=== PATIENT | female | born 1950 | race Caucasian/White ===

== ENCOUNTER → 2016-07-16 | Outpatient (CLI) | payer BC ==
[~2016-07-16] MED LIST: COUM2.5T11 PO; DYAZ37.5 PO; ESTR3TA PO; FOLI1TAB2 PO; MAXZTAB PO; MOBI15TA PO; PERC5TAB6 PO; PROT1TAB2 PO; TRAM37.53 PO; VALS1TAB46 PO; VENL75TA2 PO; [UNRECOGNIZED DRUG - CODE] PO
[2016-07-16 11:08] LABS: MEAN CORPUSCULAR HEMOGLOBIN 30.6 pg (27.0-33.0); MEAN CORPUSCULAR VOLUME 92.7 fl (80.0-96.0); RED CELL DISTRIBUTION WIDTH 13.4 % (11.5-14.5); WHITE BLOOD COUNT 4.8 K/mm3 (4.0-10.0)
[2016-07-16 11:16] LABS: INR 0.92
[2016-07-16 11:52] LABS: ALBUMIN 3.7 GM/DL (3.2-5.2); ALBUMIN/GLOBULIN RATIO 1.03 (1.00-1.93); ALKALINE PHOSPHATASE 86 U/L (45-117); ALT/SGPT 23 U/L (12-78); ANION GAP 6 MEQ/L (8-16); AST/SGOT 19 U/L (15-37); BILIRUBIN,TOTAL 0.3 MG/DL (0.2-1.0); BLOOD UREA NITROGEN 21 MG/DL (7-18); CARBON DIOXIDE LEVEL 28 MEQ/L (21-32); CHLORIDE LEVEL 106 MEQ/L (98-107); CREATININE FOR GFR 0.75 MG/DL (0.55-1.02); GLOMERULAR FILTRATION RATE > 60.0 (>45); GLUCOSE, FASTING 79 MG/DL (80-110); POTASSIUM SERUM 3.9 MEQ/L (3.5-5.1); SODIUM LEVEL 140 MEQ/L (136-145); TOTAL PROTEIN 7.3 GM/DL (6.4-8.2)
--- NOTE | 2016-07-16 22:33 | ECGEPIP ---
Stationary ECG Study [facility] Test Date: 2016-07-16 Pat Name: KATHERINE RAVI Department: Room: - Gender: F Dress Fitter: AMRIT : 1950 Requested By: Luis Waddell Order Number: [id number] Reading MD: Chuck Cardenas Measurements Intervals [place] Rate: 79 P: 51 [place]: 149 QRS: 19 QRSD: 107 T: 37 QT: 381 QTc: 437 Interpretive Statements SINUS RHYTHM WITH FREQUENT VENTRICULAR PREMATURE COMPLEXES IN A BIGEMINAL PATTERN ABNORMAL RHYTHM ECG Electronically Signed On 07-16-2016 22:33:28 EDT by Chuck Cardenas
--- NOTE | 2016-07-16 22:52 | REP ---
Clinical: Preoperative assessment . Comparison: 07/14/2015 . Technique: PA and lateral. Findings: The mediastinum and cardiac silhouette are normal. Airway is patent and midline. The lung chen are clear and without acute consolidation, effusion, or pneumothorax. The skeletal structures are intact and normal. Impression: 1. No acute cardiopulmonary process. Signed by Arslan Carranza MD 07/16/2016 10:43 P
== END ==
LOC: M ADMPAT 09:30
PROVIDERS: ATTEND Orthopaedic Surgery
DX: M17.11 Unilateral primary osteoarthritis, right knee (principal); R94.31 Abnormal electrocardiogram [ECG] [EKG]

== ENCOUNTER 2016-07-30 05:37 | Inpatient (IN) | payer BC ==
[2016-07-16 10:10] VITALS: BP 110/82
--- NOTE | 2016-07-25 16:50 | HPE ---
DATE OF ADMISSION: 07/30/2016 This is a pleasant female with continuing symptomatic right knee osteoarthritis. She has consented for a right total knee arthroplasty per Dr. Luis Briggs. Medical optimization per Dr. Rich, although I am still awaiting her clearance note. X-rays are consistent with advanced osteoarthritis. ALLERGIES: Positive for MORPHINE. MEDICATIONS: List includes: - Diovan 80 mg - venlafaxine HCl 75 mg - triamterine hydrochlorothiazide 37.5-25 mg - Premarin 0.3 mg - pantoprazole sodium 40 mg - folic acid 1 mg - Osteo Bi-Flex Triple Strength with 5-Loxin - tramadol HCl 50 mg MEDICAL PROBLEMS: List includes: 1. Symptomatic right knee osteoarthritis. 2. Essential hypertension. 3. Depression. 4. The patient notes a history of slow and irregular heartbeat. There was some concern about atrial fibrillation which I do not have documentation of but she mentions it. PAST SURGICAL HISTORY: Is pertinent for a left total knee arthroplasty per Dr. Lopez. Additionally, she has had total hysterectomy and cholecystectomy. SOCIAL HISTORY: Denies smoking. Rare ethanol intake. No illicit drugs. FAMILY HISTORY: Positive for hypertension, heart disease, diabetes, cancer, also mentions that somebody in her family had atrial fibrillation. REVIEW OF SYSTEMS: She denies chest pain, shortness of breath, dyspnea on exertion, fever, chills, malaise, upper respiratory or urinary tract symptoms. Blood pressure 140/80, heart rate 50. Height 66 inches, weight 228. Temperature 97.6, respirations 16. She is a pleasant, obese female in no acute distress. Alert and times three. Mood and affect are appropriate. She is ambulating slow, steady with favoring of the left lower extremity. No gross antalgia about the right or assistive device. The lower extremities were inspected. She does have some chronic dependent edema. Otherwise benign noninfectious looking limbs, skin is intact. Right knee positive joint line tenderness with crepitance through flexion and extension, range of motion near 0, flexion past 90. She is stable about the collateral ligaments, patellar quadriceps and quadriceps tendons. PFJ is congruent, static , and dynamic. No popliteal fossa mass or pain. Right hip range of motion is not limited or irritable through internal and external range of motion. Bowel sounds times four, soft, nontender. Chest rises symmetrically. Negative murmurs, gallops or rubs. Lungs clear to auscultation. Neck supple. Negative JVD or bruits. Normocephalic. Lab and diagnostics were reviewed. Glucose fasting 79, BUN 21, anion gap 6, platelet count 138. The patient commended that this is her regular irregular which she is aware of. Urinalysis cloudy. Nasal and sinus culture were unremarkable. IMPRESSION: 1. Symptomatic right knee osteoarthritis. 2. The patient consented for right total knee arthroplasty per Dr. Luis Briggs. 3. Medical optimization per Dr. Rich on 07/23/2016, we are awaiting for her note. 4. On-call the operating room (OR) 2 grams IV Kefzol in OR. 5. Sequential compression device (SCD) and thromboembolism deterrents (TEDs) in OR. MTDD
[~2016-07-30] VITALS: Ht 170.2 cm; Wt 105.4 kg
[2016-07-30] VITALS (9 sets, daily range): BP systolic 115–131; BP diastolic 54–63
[~2016-07-30 05:37] MED LIST changes: +**UNRESOLVED NON-FORMULARY MED ORDER XX SCH; +BUPIVACAINE HCL 0.25% 30 ML VIAL As Ordered ONE; +BUPIVACAINE/EPIN 0.25% 30 ML VIAL As Ordered ONE; +EPINEPHrine INJ 1 MG/ML 1ML AMP As Ordered ONE; +TRANEXAMIC ACID 100 MG/ML 10ML VIAL As Ordered ONE; +ceFAZolin 1GM INJ (J0690) As Ordered ONE
[2016-07-30] MEDS ORDERED: PERCOCET 5MG/325MG TAB PO ONE (06:00)
[2016-07-30] MEDS ORDERED: CelecoXIB (CeleBREX) 100 MG CAP PO ONE (06:00)
[2016-07-30] MEDS ORDERED: LR 1,000 ML IV ONE (06:00)
[2016-07-30] MEDS ORDERED: PREGABALIN 75 MG CAP(LYRICA) PO ONE (06:00)
[2016-07-30] MEDS ORDERED: COUM1TAB17 PO (06:17)
[2016-07-30] MEDS ORDERED: MIDAZOLAM INJ 2 MG/2 ML VIAL (J2250) As Ordered ONE ×2 (07:02→08:57)
[2016-07-30] MEDS ORDERED: fentaNYL 100 MCG/2 ML INJECTION (J3010) As Ordered ONE ×3 (07:02→09:32)
[2016-07-30] MEDS ORDERED: MIDAZOLAM INJ 2 MG/2 ML VIAL (J2250) IV ONE (08:00)
[2016-07-30] MEDS ORDERED: fentaNYL 100 MCG/2 ML INJECTION (J3010) IV ONE (08:00)
[2016-07-30] MEDS: fentaNYL 100 MCG/2 ML INJECTION (J3010) As Ordered ONE ×2 (08:15→09:27)
[2016-07-30] MEDS ORDERED: PROPOFOL 200 MG/20 ML VIAL As Ordered ONE (08:57)
[2016-07-30] MEDS ORDERED: ROCURONIUM BROMIDE 50 MG/5 ML VIAL As Ordered ONE (08:57)
[2016-07-30] MEDS ORDERED: dexameTHASONE 4 MG/ML 1ML VIAL (J1100) As Ordered ONE (08:57)
[2016-07-30] MEDS ORDERED: GLYCOPYRROLATE INJ 0.2 MG/ML 2 ML VIAL As Ordered ONE (08:58)
[2016-07-30] MEDS ORDERED: LIDOCAINE 2% INJ 100 MG/5 ML SDV (FOR ANES.) As Ordered ONE (08:58)
[2016-07-30] MEDS ORDERED: ONDANSETRON 4MG/2ML VIAL (J2405) As Ordered ONE (08:58)
[2016-07-30] MEDS ORDERED: NEOSTIGMINE 1MG/ML 5 ML SYRINGE (J2710) As Ordered ONE (08:58)
[2016-07-30] MEDS ORDERED: PANTOPRAZOLE 40MG TAB (PROTONIX) PO SCH (09:00)
[2016-07-30] MEDS ORDERED: FOLIC ACID 1 MG TAB PO SCH (09:00)
[2016-07-30] MEDS: MOM 30ML SUSPENSION UDC PO SCH (09:00)
[2016-07-30] MEDS: fentaNYL 100 MCG/2 ML INJECTION (J3010) IV PRN ×2 (09:52→12:10)
[2016-07-30] MEDS ORDERED: ONDANSETRON 4MG/2ML VIAL (J2405) IV PRN (10:00)
[2016-07-30] MEDS ORDERED: PERCOCET 5MG/325MG TAB PO PRN (10:00)
[2016-07-30] MEDS ORDERED: LR 1,000 ML IV SCH (10:00)
[2016-07-30] MEDS ORDERED: HYDROmorphone HCL 1 MG/ML SYRINGE (J1170) IV PRN ×3 (10:00→10:30)
[2016-07-30] MEDS ORDERED: FLEET ENEMA PR PRN (10:30)
[2016-07-30] MEDS ORDERED: PROMETHAZINE INJ 25 MG/ML VIAL (J2550) IV PRN (10:30)
[2016-07-30] MEDS ORDERED: ACETAMINOPHEN TAB 650MG DOSE (2X325MG) PO PRN (10:30)
[2016-07-30] MEDS ORDERED: PATIENT IS CURRENTLY ON AN ON-Q PAIN BUSTER PAIN RELIEF SYSTEM XX SCH (10:45)
[2016-07-30] MEDS ORDERED: LIDOCAINE 1% MDV 20ML VIAL ONE (13:41)
[2016-07-30] MEDS ORDERED: dexameTHASONE 10 MG/1 ML VIAL PRES.FREE (J1100) ONE (13:41)
[2016-07-30] MEDS ORDERED: ROPIvacaine 0.5% 30 ML INJECTION (J2795) ONE (13:41)
--- NOTE | 2016-07-30 16:39 | IPNPDOC ---
Subjective Date Seen The patient was seen on 07/30/16. Subjective Chief Complaint/HPI The patient is a 65-year-old female admitted with a reason for visit of Arthritis Right Knee. Events since last encounter Patient admitted for elective knee arthroplasty and hospitalist service consulted by Dr Narinder Chacon for management of medical comorbidities. Surgery was uncomplicated. However while in the PACU post op patient was noted to become hypoxic to 405 when she was falling asleep after pain medications. pateint tells me she had CATHERINE and used to need CPAP before however after loosing 30 lbs weight she has not needed any CPAP , She denied SOb , denied cough or phlegm , denied chest pain , no nausea or vomiting or diarrhea. Objective Physical Examination General Exam: Positive: Alert, Cooperative, No Acute Distress Eye Exam: Positive: PERRLA, Conjunctiva & lids normal, EOMI, Negative: Sclera icteric ENT Exam: Positive: Atraumatic, Mucous membr. moist/pink, Pharynx Normal Neck Exam: Positive: Supple, Negative: JVD, thyromegaly Chest Exam: Positive: Clear to auscultation, Normal air movement Heart Exam: Positive: Rate Normal, Regular Rhythm, Normal S1, Normal S2, Negative: Murmurs, Rubs Telemetry: Positive: No significant arrhythmia Abdomen Exam: Positive: Normal bowel sounds, Soft, Negative: Tenderness, Hepatospenomegaly Extremity Exam: Positive: Normal pulses, Negative: Clubbing, Cyanosis, Edema Skin Exam: Positive: Nl turgor and temperature, Negative: Rash, Breakdown Assessment /Plan Problems (1) S/P total knee arthroplasty Problem Text: Had elective right total knee arthroplasty surgery was uneventful dvt prophylaxis as per ortho . for pain control will try to keep opiates at a minimum due to the noted hypoxia in the pacu. will use toradol. (2) Hypoxia Status: Acute Problem Text: central vs obstructive apnea. will get nocturnal pulse oximetry while she is in the hospital. will have to careful with opioid pain medications. continue oxygen supplementation (3) Obesity Status: Chronic (4) CATHERINE (obstructive sleep apnea) Status: Chronic Problem Text: used to be on CPAP is not using for several months after loosing 30 lbs of weight. (5) Hypertension Status: Chronic Problem Text: continue valsartan with hold parameters from tomorrow. will hold diuretics. (6) GERD (gastroesophageal reflux disease) Status: Chronic Problem Text: continue pantoprazole. (7) Depression Status: Chronic Problem Text: continue venlafaxine. Plan/VTE VTE Prophylaxis Ordered?: Yes VS, I&O, 24H, Fishbone Vital Signs/I&O Vital Signs Date Time Temp Pulse Resp B/P (MAP) Pulse Ox O2 Delivery O2 Flow Rate FiO2 07/30/16 15:55 75 16 135/61 (85) 90 High Flow Cannula 2 07/30/16 15:35 99.4 KAMALA POWELL MD Jul 30, 2016 16:39
[2016-07-30] MEDS ORDERED: KETOROLAC 30 MG/ML VIAL (J1885) IV PRN (16:45)
[2016-07-30] MEDS: PANTOPRAZOLE 40MG TAB (PROTONIX) PO SCH (16:53)
[2016-07-30] MEDS: FOLIC ACID 1 MG TAB PO SCH (16:53)
[2016-07-30] MEDS: PERCOCET 5MG/325MG TAB PO PRN ×2 (16:54→21:22)
[2016-07-30] MEDS ORDERED: WARFARIN SOD 2.5 MG TAB PO SCH (17:00)
[2016-07-30] MEDS ORDERED: WARFARIN SOD 1 MG TAB PO SCH (17:00)
[2016-07-30] MEDS: ASCORBIC ACID 500 MG TAB PO SCH (17:27)
[2016-07-30] MEDS: KCL 10MEQ IN D5/0.45NS 1000ML 1,000 ML IV SCH ×2 (17:28→20:18)
[2016-07-30] MEDS: VENLAFAXINE 37.5 MG TAB PO SCH (20:17)
--- NOTE | 2016-07-30 22:55 | RO ---
DATE OF PROCEDURE: 07/30/2016 PREOPERATIVE DIAGNOSIS: Right knee osteoarthritis. POSTOPERATIVE DIAGNOSIS: Right knee osteoarthritis. PROCEDURE PERFORMED: Right total knee replacement. SURGEON: Dr. Luis Briggs TOBACCO STRIPPING MACHINE OPERATOR: Jameel Poe PA-C ANESTHESIA: Dr. Morrison, spinal with block. ESTIMATED BLOOD LOSS: Less than 40 mL, replaced with crystalloid COMPLICATIONS: None. Tourniquet was utilized. Tourniquet time: 66 minutes at 250 mmHg. INDICATIONS: A 65-year-old with a history of left knee replacement, did well, has elected for right knee surgery for progressive discomfort in the right knee over a period of more than a year. Consent reviewed in detail including a faustina discussion of the pathology involved, the procedure proposed, alternatives including doing nothing and risks including but not limited to pain, failure, infection, bleeding, blood loss, incomplete relief of symptoms, need for additional surgery and other issues. The patient agrees to proceed. COMPONENTS USED: Include DePuy PFC posterior stabilized knee system, size 4 narrow femoral component, size 3 tibial component, size 10 mm polyethylene spacer, size 32 mm polyethylene button and two doses of bone cement. DESCRIPTION OF PROCEDURE: Operative Course: Identified in holding area, site and side verified, brought to the operating room. Once the anesthesia had been administered, she was positioned for exposure of the right knee for arthroplasty. Incision was a standard midline parapatellar incision infiltrated with 0.25% Marcaine with epinephrine, knee elevated, leg exsanguinated by gravity, tourniquet inflated to 250 mmHg. Once the arthrotomy was made, developed down through skin and subcuticular tissues, extensor mechanism, arthrotomy was accomplished, patella everted, knee flexed. Intramedullary alignment jig installed into the femur, cut was made distal femur, 5 degrees valgus. Next, 4-in-1 block secured after measuring for a size 4 knee. Chamfer cuts were then made. Tibial cuts were then made using the extramedullary jig. Next, spacer blocks, 10 mm, utilized in flexion and extension. Next, a notch cut was made and adjusted using the rasp and the jig. Next, trial posterior stabilized femoral component was applied. Tibial component and 10 mm trial spacer were applied. Rotational alignment was marked. Next, patella was everted, posterior patella cut made with an oscillating saw and 32 mm sizing jig applied, peg hole drilled. Next, the knee was flexed trial components removed, tibial plate was placed based on rotational alignment, pinned into place. Tibial keel drill and keel broach were installed. Once this was accomplished, pulse lavage irrigation was accomplished. Mr. Quinn stepped to the back table to prepare the bone cement. Next, the knee was cemented into place, nontrial polyethylene installed. Excess cement cured, cleared with curettes. Cement was allowed to harden. Pulse irrigation was accomplished. TXA was placed in the knee and allowed to stand for 1 minute. Next, arthrotomy was closed with interrupted and running Stratafix stitch. Next, PainBuster placed exiting superolaterally. Next, the rest of the incision was closed with interrupted stitch followed by Prineo adhesive dressing. Tourniquet had been inflated prior to superficial closure at 66 minutes. Next, the patient was moved to the hospital bed, moved to the recovery room in good condition. For further details, please refer to medical record. FLACO
[2016-07-31] VITALS (9 sets, daily range): BP systolic 111–174; BP diastolic 56–74
[2016-07-31] MEDS: KCL 10MEQ IN D5/0.45NS 1000ML 1,000 ML IV SCH (04:32)
[2016-07-31 05:00] LABS: MEAN CORPUSCULAR HEMOGLOBIN 31.8 pg (27.0-33.0); MEAN CORPUSCULAR HGB CONC 34.1 g/dl (32.0-36.5); MEAN CORPUSCULAR VOLUME 93.2 fl (80.0-96.0); RED CELL DISTRIBUTION WIDTH 13.3 % (11.5-14.5); WHITE BLOOD COUNT 6.7 K/mm3 (4.0-10.0)
[2016-07-31 05:22] LABS: INR 1.1
[2016-07-31 05:23] LABS: ANION GAP 4 MEQ/L (8-16); BLOOD UREA NITROGEN 14 MG/DL (7-18); CALCIUM LEVEL 8.6 MG/DL (8.8-10.2); CARBON DIOXIDE LEVEL 30 MEQ/L (21-32); CHLORIDE LEVEL 101 MEQ/L (98-107); CREATININE FOR GFR 0.81 MG/DL (0.55-1.02); GLOMERULAR FILTRATION RATE > 60.0 (>45); GLUCOSE, FASTING 147 MG/DL (80-110); POTASSIUM SERUM 3.7 MEQ/L (3.5-5.1); SODIUM LEVEL 135 MEQ/L (136-145)
[2016-07-31] MEDS: PERCOCET 5MG/325MG TAB PO PRN ×4 (06:27→21:18)
[2016-07-31] MEDS: MOM 30ML SUSPENSION UDC PO SCH (08:19)
[2016-07-31] MEDS: MIRALAX *UNIT DOSE* 17GM PACKET PO SCH (08:19)
[2016-07-31] MEDS: SENOKOT S TAB PO SCH ×2 (08:21→21:18)
[2016-07-31] MEDS: ASCORBIC ACID 500 MG TAB PO SCH (08:27)
[2016-07-31] MEDS: FOLIC ACID 1 MG TAB PO SCH (08:27)
[2016-07-31] MEDS: PANTOPRAZOLE 40MG TAB (PROTONIX) PO SCH (08:27)
[2016-07-31] MEDS: VALSARTAN 80 MG TAB (DIOVAN) PO SCH ×2 (08:28→21:22)
[2016-07-31] MEDS: VENLAFAXINE 37.5 MG TAB PO SCH ×2 (08:28→21:18)
[2016-07-31] MEDS ORDERED: PREMARIN 0.3 MG PO SCH (09:00)
[2016-07-31] MEDS ORDERED: CelecoXIB (CeleBREX) 100 MG CAP PO ONE (09:00)
--- NOTE | 2016-07-31 09:32 | REP ---
AP LATERAL RIGHT KNEE: 07/31/2016. Clinical history: Status post right total knee arthroplasty. Findings: Two views are provided showing three components of the right total knee arthroplasty well-aligned in relationship to each other and the [place] bone. Catheter noted lateral to the femoral condyle in the subcutaneous distal right thigh extending toward the knee. Soft tissue swelling about the knee with subcutaneous air consistent with recent postoperative state. Impression: 1. The components of the total knee arthroplasty are well aligned in relationship to each other and the [place] bone. Signed by Virgil Butler MD 07/31/2016 11:47 A
--- NOTE | 2016-07-31 14:03 | IPNPDOC ---
Subjective Date Seen The patient was seen on 07/31/16. Subjective Chief Complaint/HPI The patient is a 65-year-old female admitted with a reason for visit of Arthritis Right Knee. Events since last encounter no complaints this am . Overnight did not have any hypoxic or apneic spells , no chest pain or SOB , no abdominal pain nausea or vomiting or diarrhea. Pain is adequetely controlled with percocet and celebrex. Objective Physical Examination General Exam: Positive: Alert, Cooperative, No Acute Distress Eye Exam: Positive: PERRLA, Conjunctiva & lids normal, EOMI, Negative: Sclera icteric ENT Exam: Positive: Atraumatic, Mucous membr. moist/pink, Pharynx Normal Neck Exam: Positive: Supple, Negative: JVD, thyromegaly Chest Exam: Positive: Clear to auscultation, Normal air movement Heart Exam: Positive: Rate Normal, Regular Rhythm, Normal S1, Normal S2, Negative: Murmurs, Rubs Telemetry: Positive: No significant arrhythmia Abdomen Exam: Positive: Normal bowel sounds, Soft, Negative: Tenderness, Hepatospenomegaly Extremity Exam: Positive: Normal pulses, Negative: Clubbing, Cyanosis, Edema Skin Exam: Positive: Nl turgor and temperature, Negative: Rash, Breakdown Assessment /Plan Problems (1) S/P total knee arthroplasty Problem Text: Had elective right total knee arthroplasty surgery was uneventful dvt prophylaxis as per ortho . for pain control will try to keep opiates at a minimum due to the noted hypoxia in the pacu. will use toradol. (2) Hypoxia Status: Resolved Problem Text: due to anesthesia and pain medication. Pateint did have history of CATHERINE which has improved after weight loss and had not required any CPAP for the past year. (3) Obesity Status: Chronic (4) CATHERINE (obstructive sleep apnea) Status: Chronic Problem Text: used to be on CPAP is not using for several months after loosing 30 lbs of weight. (5) Hypertension Status: Chronic Problem Text: continue valsartan with hold parameters from tomorrow. will hold diuretics. (6) GERD (gastroesophageal reflux disease) Status: Chronic Problem Text: continue pantoprazole. (7) Depression Status: Chronic Problem Text: continue venlafaxine. Plan/VTE VTE Prophylaxis Ordered?: Yes VS, I&O, 24H, Fishbone Vital Signs/I&O Vital Signs Date Time Temp Pulse Resp B/P (MAP) Pulse Ox O2 Delivery O2 Flow Rate FiO2 07/31/16 09:28 18 07/31/16 08:30 98.0 70 134/68 (90) 97 Room Air 07/31/16 06:00 2.0 I&O- Last 24 Hours up to 6 AM 07/31/16 06:00 Intake Total 5060 ml Output Total 925 ml Balance 4135 ml Laboratory Data 24H LABS Laboratory Tests 2 07/31/16 04:50: Prothrombin Time 14.3, Prothromb Time International Ratio 1.10, Anion Gap 4L, Glomerular Filtration Rate > 60.0, Blood Urea Nitrogen 14, Creatinine 0.81, Sodium Level 135L, Potassium Level 3.7, Chloride Level 101, Carbon Dioxide Level 30, Calcium Level 8.6L CBC/BMP Laboratory Tests 07/31/16 04:50 Red Blood Count 3.48 L, Mean Corpuscular Volume 93.2, Mean Corpuscular Hemoglobin 31.8, Mean Corpuscular Hemoglobin Concent 34.1, Red Cell Distribution Width 13.3, Calcium Level 8.6 L KAMALA POWELL MD Jul 31, 2016 14:03
[2016-07-31] MEDS ORDERED: WARFARIN SOD 5 MG TAB PO ONE (17:00)
[2016-08-01 06:00] VITALS: BP 164/88
[2016-08-01] MEDS ORDERED: traMADol 50 MG TAB PO PRN (06:45)
[2016-08-01 06:58] LABS: INR 1.19
[2016-08-01 07:12] LABS: ANION GAP 4 MEQ/L (8-16); BLOOD UREA NITROGEN 10 MG/DL (7-18); CALCIUM LEVEL 8.7 MG/DL (8.8-10.2); CARBON DIOXIDE LEVEL 32 MEQ/L (21-32); CHLORIDE LEVEL 102 MEQ/L (98-107); CREATININE FOR GFR 0.67 MG/DL (0.55-1.02); GLOMERULAR FILTRATION RATE > 60.0 (>45); GLUCOSE, FASTING 97 MG/DL (80-110); POTASSIUM SERUM 3.7 MEQ/L (3.5-5.1); SODIUM LEVEL 138 MEQ/L (136-145)
[2016-08-01] MEDS: MIRALAX *UNIT DOSE* 17GM PACKET PO SCH (09:00)
[2016-08-01] MEDS: MOM 30ML SUSPENSION UDC PO SCH (09:00)
[2016-08-01] MEDS: SENOKOT S TAB PO SCH ×2 (09:00→20:31)
[2016-08-01] MEDS: VENLAFAXINE 37.5 MG TAB PO SCH ×2 (10:22→20:30)
[2016-08-01] MEDS: FOLIC ACID 1 MG TAB PO SCH (10:22)
[2016-08-01] MEDS: ASCORBIC ACID 500 MG TAB PO SCH (10:22)
[2016-08-01] MEDS: PANTOPRAZOLE 40MG TAB (PROTONIX) PO SCH (10:22)
[2016-08-01] MEDS: VALSARTAN 80 MG TAB (DIOVAN) PO SCH ×2 (10:23→20:30)
[2016-08-01] MEDS: traMADol 50 MG TAB PO PRN (11:50)
--- NOTE | 2016-08-01 12:08 | IPNPDOC ---
Subjective Date Seen The patient was seen on 08/01/16. Subjective Chief Complaint/HPI The patient is a 65-year-old female admitted with a reason for visit of Arthritis Right Knee. Events since last encounter [place] became hypoxic at night during sleep so had to be put back on oxygen , suggested pateint to bring her CPAP from home but she does not want to use it in the hospital but did say that she would use it at home. No fever or chills, no chest pain or SOB , no cough or phlegm , no nausea or vomiting or diarrhea. Objective Physical Examination General Exam: Positive: Alert, Cooperative, No Acute Distress Eye Exam: Positive: PERRLA, Conjunctiva & lids normal, EOMI, Negative: Sclera icteric ENT Exam: Positive: Atraumatic, Mucous membr. moist/pink, Pharynx Normal Neck Exam: Positive: Supple, Negative: JVD, thyromegaly Chest Exam: Positive: Clear to auscultation, Normal air movement Heart Exam: Positive: Rate Normal, Regular Rhythm, Normal S1, Normal S2, Negative: Murmurs, Rubs Telemetry: Positive: No significant arrhythmia Abdomen Exam: Positive: Normal bowel sounds, Soft, Negative: Tenderness, Hepatospenomegaly Extremity Exam: Positive: Normal pulses, Negative: Clubbing, Cyanosis, Edema Skin Exam: Positive: Nl turgor and temperature, Negative: Rash, Breakdown Assessment /Plan Problems (1) S/P total knee arthroplasty Problem Text: Had elective right total knee arthroplasty surgery was uneventful dvt prophylaxis as per ortho . for pain control will try to keep opiates at a minimum due to the noted hypoxia in the pacu. will use toradol. (2) Hypoxia Status: Resolved Problem Text: due to anesthesia and pain medication. Patient does have history of CATHERINE which has improved after weight loss and had not required any CPAP for the past year. However may still need to use CPAP while she is on pain medications (3) Obesity Status: Chronic (4) CATHERINE (obstructive sleep apnea) Status: Chronic Problem Text: used to be on CPAP is not using for several months after loosing 30 lbs of weight. (5) Hypertension Status: Chronic Problem Text: continue valsartan with hold parameters from tomorrow. will hold diuretics. (6) GERD (gastroesophageal reflux disease) Status: Chronic Problem Text: continue pantoprazole. (7) Depression Status: Chronic Problem Text: continue venlafaxine. Plan/VTE VTE Prophylaxis Ordered?: Yes VS, I&O, 24H, Fishbone Vital Signs/I&O Vital Signs Date Time Temp Pulse Resp B/P (MAP) Pulse Ox O2 Delivery O2 Flow Rate FiO2 08/01/16 11:50 18 08/01/16 11:07 Room Air 08/01/16 10:23 166/88 08/01/16 06:00 98.9 89 97 08/01/16 03:52 1.0 I&O- Last 24 Hours up to 6 AM 08/01/16 06:00 Intake Total 1000 ml Output Total 900 ml Balance 100 ml Laboratory Data 24H LABS Laboratory Tests 2 08/01/16 06:42: Prothrombin Time 15.2H, Prothromb Time International Ratio 1.19, Anion Gap 4L, Glomerular Filtration Rate > 60.0, Blood Urea Nitrogen 10, Creatinine 0.67, Sodium Level 138, Potassium Level 3.7, Chloride Level 102, Carbon Dioxide Level 32, Calcium Level 8.7L CBC/BMP Laboratory Tests 08/01/16 06:42 Calcium Level 8.7 L KAMALA POWELL MD Aug 01, 2016 12:08
[2016-08-01 14:00] VITALS: BP 136/72
[2016-08-01] MEDS ORDERED: KETOROLAC 30 MG/ML VIAL (J1885) IV ONE (15:30)
--- NOTE | 2016-08-01 16:53 | ECGEPIP ---
Stationary ECG Study [facility] Test Date: 2016-08-01 Pat Name: KATHERINE RAVI Department: Room: [place] [address] Gender: F School Custodian: EVIE : 1950 Requested By: LIDYA CHRISTIANSEN Order Number: [id number] Reading MD: Willam Amaya Measurements Intervals [place] Rate: 80 P: 46 [place]: 165 QRS: 31 QRSD: 106 T: 53 QT: 352 QTc: 407 Interpretive Statements Normal sinus rhythm with occasional PVC Nonspecific repolarization abnormalities No significant change from prior tracing of 07/16/2016 Electronically Signed On 08-01-2016 16:53:00 EDT by Willam Amaya
[2016-08-01] MEDS ORDERED: WARFARIN SOD 3 MG TAB PO ONE (17:00)
[2016-08-01 22:00] VITALS: BP 176/66
[2016-08-02 02:00] VITALS: BP 155/61
[2016-08-02] MEDS: traMADol 50 MG TAB PO PRN ×2 (05:20→11:00)
[2016-08-02 06:00] VITALS: BP 158/63
[2016-08-02 07:11] LABS: INR 1.24
[2016-08-02 07:16] LABS: ANION GAP 6 MEQ/L (8-16); BLOOD UREA NITROGEN 8 MG/DL (7-18); CALCIUM LEVEL 8.8 MG/DL (8.8-10.2); CARBON DIOXIDE LEVEL 31 MEQ/L (21-32); CHLORIDE LEVEL 101 MEQ/L (98-107); CREATININE FOR GFR 0.63 MG/DL (0.55-1.02); GLOMERULAR FILTRATION RATE > 60.0 (>45); GLUCOSE, FASTING 95 MG/DL (80-110); SODIUM LEVEL 138 MEQ/L (136-145)
[2016-08-02] MEDS ORDERED: PREMARIN 0.3 MG PO SCH (09:00)
[2016-08-02] MEDS: MIRALAX *UNIT DOSE* 17GM PACKET PO SCH (09:01)
[2016-08-02] MEDS: SENOKOT S TAB PO SCH (09:01)
[2016-08-02] MEDS: MOM 30ML SUSPENSION UDC PO SCH (09:01)
[2016-08-02 09:13] VITALS: BP 158/63
[2016-08-02] MEDS: VALSARTAN 80 MG TAB (DIOVAN) PO SCH (09:13)
[2016-08-02] MEDS: PANTOPRAZOLE 40MG TAB (PROTONIX) PO SCH (09:13)
[2016-08-02] MEDS: VENLAFAXINE 37.5 MG TAB PO SCH (09:13)
[2016-08-02] MEDS: ASCORBIC ACID 500 MG TAB PO SCH (09:13)
[2016-08-02] MEDS: FOLIC ACID 1 MG TAB PO SCH (09:13)
[2016-08-02] MEDS ORDERED: COUM2.5T11 PO (09:17)
[2016-08-02] MEDS ORDERED: TRAM50TA2 PO (09:17)
--- NOTE | 2016-08-02 11:48 | IPNPDOC ---
Subjective Date Seen The patient was seen on 08/02/16. Subjective Chief Complaint/HPI The patient is a 65-year-old female admitted with a reason for visit of Arthritis Right Knee. Events since last encounter no complaints this am . possible dc today. Objective Physical Examination General Exam: Positive: Alert, Cooperative, No Acute Distress Eye Exam: Positive: PERRLA, Conjunctiva & lids normal, EOMI, Negative: Sclera icteric ENT Exam: Positive: Atraumatic, Mucous membr. moist/pink, Pharynx Normal Neck Exam: Positive: Supple, Negative: JVD, thyromegaly Chest Exam: Positive: Clear to auscultation, Normal air movement Heart Exam: Positive: Rate Normal, Regular Rhythm, Normal S1, Normal S2, Negative: Murmurs, Rubs Telemetry: Positive: No significant arrhythmia Abdomen Exam: Positive: Normal bowel sounds, Soft, Negative: Tenderness, Hepatospenomegaly Extremity Exam: Positive: Normal pulses, Negative: Clubbing, Cyanosis, Edema Skin Exam: Positive: Nl turgor and temperature, Negative: Rash, Breakdown Assessment /Plan Problems (1) S/P total knee arthroplasty Problem Text: Had elective right total knee arthroplasty surgery was uneventful dvt prophylaxis as per ortho . for pain control will try to keep opiates at a minimum due to the noted hypoxia in the pacu. will use toradol. (2) Hypoxia Status: Resolved Problem Text: due to anesthesia and pain medication. Patient does have history of CATHERINE which has improved after weight loss and had not required any CPAP for the past year. However may still need to use CPAP while she is on pain medications (3) Obesity Status: Chronic (4) CATHERINE (obstructive sleep apnea) Status: Chronic Problem Text: used to be on CPAP is not using for several months after loosing 30 lbs of weight. (5) Hypertension Status: Chronic Problem Text: continue valsartan with hold parameters from tomorrow. will hold diuretics. (6) GERD (gastroesophageal reflux disease) Status: Chronic Problem Text: continue pantoprazole. (7) Depression Status: Chronic Problem Text: continue venlafaxine. Plan/VTE VTE Prophylaxis Ordered?: Yes VS, I&O, 24H, Fishbone Vital Signs/I&O Vital Signs Date Time Temp Pulse Resp B/P (MAP) Pulse Ox O2 Delivery O2 Flow Rate FiO2 6/16/17 11:30 16 08/02/16 09:13 158/63 08/02/16 09:00 Room Air 08/02/16 06:00 97.7 66 98 08/01/16 03:52 1.0 I&O- Last 24 Hours up to 6 AM 08/02/16 05:59 Intake Total 240 ml Output Total 500 ml Balance -260 ml Laboratory Data 24H LABS Laboratory Tests 2 08/02/16 06:27: Prothrombin Time 15.7H, Prothromb Time International Ratio 1.24 08/02/16 06:28: Anion Gap 6L, Glomerular Filtration Rate > 60.0, Blood Urea Nitrogen 8, Creatinine 0.63, Sodium Level 138, Potassium Level 4.0, Chloride Level 101, Carbon Dioxide Level 31, Calcium Level 8.8 CBC/BMP Laboratory Tests 08/02/16 06:28 Calcium Level 8.8 KAMALA POWELL MD Aug 02, 2016 11:48
--- NOTE | 2016-08-06 21:33 | DSES ---
DATE OF ADMISSION: 07/30/2016 DATE OF DISCHARGE: 08/02/2016 ADMISSION DIAGNOSIS: Right knee arthritis. OTHER DIAGNOSES: Hypertension, depression, irregular heart rate. DISCHARGE DIAGNOSIS: Right knee arthritis status post right total knee arthroplasty. OPERATION PERFORMED: Right total knee arthroplasty. HISTORY: This is a 65-year-old female with progressively worsening right knee pain and stiffness. The patient was admitted for elective right knee replacement. HOSPITAL COURSE: The patient was admitted on the day of surgery and underwent right knee arthroplasty which was uneventful. She did well in the postoperative period and her hospital course was without complications. The patient was up with physical therapy per their protocol and her pain was controlled. On the day of discharge the patient was doing well. She was weightbearing as tolerated, will move her knee to prevent stiffness, will use adjusted dose Coumadin and thromboembolic deterrent (SAUNDRA) stockings for 30 days postoperatively for deep venous thrombosis (DVT) prophylaxis and she will use oral medications for pain control. Also she will follow in the office in 2 weeks for staple removal, will resume preoperative medications and diet and she was given instructions for wound monitoring and activity limitations. Please refer to the medical record for further detail.
== END 2016-08-02 11:35 | disposition home health service (06) | DRG 302 ==
LOC: M OR 05:37 → M ICU 15:25 → M MS5PR 07-31 12:05
PROVIDERS: ADMIT Orthopaedic Surgery; ATTEND Orthopaedic Surgery
PROC: 0SRC0J9 Replacement of Right Knee Joint with Synthetic Substitute, Cemented, Open Approach (ICD-10-PCS; principal; 2016-07-30 07:30)
DX: M17.11 Unilateral primary osteoarthritis, right knee (principal); I10 Essential (primary) hypertension; F32.9 Major depressive disorder, single episode, unspecified; R26.89 Other abnormalities of gait and mobility; E66.9 Obesity, unspecified; R09.02 Hypoxemia; G47.33 Obstructive sleep apnea (adult) (pediatric); K21.9 Gastro-esophageal reflux disease without esophagitis; T40.2X5A Adverse effect of other opioids, initial encounter; Z68.36 Body mass index [BMI] 36.0-36.9, adult; Z79.891 Long term (current) use of opiate analgesic; Z96.652 Presence of left artificial knee joint; Z79.899 Other long term (current) drug therapy; Z90.49 Acquired absence of other specified parts of digestive tract; Z90.710 Acquired absence of both cervix and uterus

== ENCOUNTER → 2018-01-27 | Outpatient (REF) | payer MEDICARE | LOC: M LAB REF 10:21 | DX: N39.0 Urinary tract infection, site not specified (principal) | CPT/HCPCS: 87088; 87186 ==

== ENCOUNTER → 2018-03-21 | Outpatient (REF) | payer BC, MEDICARE ==
[~2018-03-21] MED LIST changes: -**UNRESOLVED NON-FORMULARY MED ORDER XX SCH; -BUPIVACAINE HCL 0.25% 30 ML VIAL As Ordered ONE; -BUPIVACAINE/EPIN 0.25% 30 ML VIAL As Ordered ONE; +COUM1TAB17 PO; -COUM2.5T11 PO; +COUM2.5T17 PO; -EPINEPHrine INJ 1 MG/ML 1ML AMP As Ordered ONE; +FOLI1TAB11 PO; -FOLI1TAB2 PO; +PERC5TAB12 PO; -PERC5TAB6 PO; +TRAM50TA2 PO; -TRANEXAMIC ACID 100 MG/ML 10ML VIAL As Ordered ONE; -ceFAZolin 1GM INJ (J0690) As Ordered ONE
[2018-03-21 21:34] LABS: APPEARANCE, URINE CLOUDY (CLEAR); BACTERIA, URINE AUTO 3+ (NEGATIVE); BILIRUBIN, URINE AUTO NEGATIVE (NEGATIVE); BLOOD, URINE BLOOD NEGATIVE (NEGATIVE); COLOR, URINE AMBER (YELLOW); GLUCOSE, URINE (UA) AUTO NEGATIVE (NEGATIVE); KETONE, URINE AUTO NEGATIVE (NEGATIVE); LEUKOCYTE ESTERASE, URINE AUTO 3+ (NEGATIVE); MUCUS, URINE SMALL (NEGATIVE); NITRITE, URINE AUTO NEGATIVE (NEGATIVE); PROTEIN, URINE AUTO 2+ mg/dL (NEGATIVE); RBC, URINE AUTO 2 /HPF (0-3); SPECIFIC GRAVITY URINE AUTO 1.019 (1.002-1.035); SQUAMOUS EPITHELIAL CELL UR AU 27 /HPF (0-6); UROBILINOGEN, URINE AUTO 0.2 mg/dL (0.0-2.0); WBC, URINE AUTO 104 /HPF (0-3)
== END ==
LOC: M LAB REF 10:09
PROVIDERS: ATTEND Physician Assistant Medical
DX: N39.0 Urinary tract infection, site not specified (principal)

== ENCOUNTER → 2018-04-03 | Outpatient (REF) | payer MEDICARE | LOC: M LAB REF 15:41 | PROVIDERS: ATTEND Family Medicine | DX: N39.0 Urinary tract infection, site not specified (principal) ==

== ENCOUNTER → 2018-06-10 | Outpatient (REF) | payer MEDICARE ==
[~2018-06-10] MED LIST changes: -VALS1TAB46 PO; +VALS1TAB66 PO
== END ==
LOC: M LAB REF 18:21
PROVIDERS: ATTEND Physician Assistant
DX: N39.0 Urinary tract infection, site not specified (principal)

== ENCOUNTER → 2018-11-04 | Outpatient (REF) | payer MEDICARE | LOC: M LAB REF 17:17 | PROVIDERS: ATTEND Physician Assistant | DX: R53.81 Other malaise (principal) ==

== ENCOUNTER → 2019-01-08 | Outpatient (REF) | payer MEDICARE | LOC: M LAB REF 15:37 | PROVIDERS: ATTEND Family Medicine | DX: N39.0 Urinary tract infection, site not specified (principal) ==

== ENCOUNTER → 2019-08-05 | Outpatient (REF) | payer MEDICARE | LOC: M LAB REF 16:44 | PROVIDERS: ATTEND Family Medicine | DX: N39.0 Urinary tract infection, site not specified (principal) ==

== ENCOUNTER → 2019-11-05 | Outpatient (REF) | payer MEDICARE ==
[~2019-11-05] MED LIST changes: +ATOR1TAB21 PO; +AUGM875T28 PO; +D3 U5000 PO; +FLEC25TA PO; +IRBE150T7 PO; +TRIA37.53 PO
== END ==
LOC: M LAB REF 15:04
PROVIDERS: ATTEND Physician Assistant
DX: R30.0 Dysuria (principal)

== ENCOUNTER 2019-11-22 11:22 | Inpatient (IN) | payer MEDICARE ==
[~2019-11-22] VITALS: Ht 170.2 cm; Wt 103.1 kg
[~2019-11-22 11:22] MED LIST changes: -ATOR1TAB21 PO; -AUGM875T28 PO; -D3 U5000 PO; -FLEC25TA PO; -IRBE150T7 PO; -TRIA37.53 PO
[2019-11-22] MEDS ORDERED: FLEC25TA PO (11:33)
[2019-11-22] MEDS ORDERED: IRBE150T7 PO (11:33)
[2019-11-22] MEDS ORDERED: ATOR1TAB21 PO (11:33)
[2019-11-22] MEDS ORDERED: ACETAMINOPHEN 500 MG TAB PO ONE (12:15)
[2019-11-22 12:33] LABS: BASO % 0.2 % (0.0-1.0); EOS # 0.1 10^3/uL (0.0-0.5); EOS % 0.5 % (0.0-3.0); HEMATOCRIT 34.2 % (36.0-47.0); HEMOGLOBIN 11.4 g/dl (12.0-15.5); LYMPH # 0.9 10^3/uL (1.5-5.0); LYMPH % 9.9 % (24.0-44.0); MEAN CORPUSCULAR HEMOGLOBIN 32.1 pg (27.0-33.0); MEAN CORPUSCULAR HGB CONC 33.3 g/dl (32.0-36.5); MEAN CORPUSCULAR VOLUME 96.3 fl (80.0-96.0); MONO # 0.5 10^3/uL (0.0-0.8); MONO % 5.3 % (0.0-5.0); NEUTROPHILS # 7.8 10^3/uL (1.5-8.5); NEUTROPHILS % 83.8 % (36.0-66.0); PLATELET COUNT, AUTOMATED 130 10^3/uL (150-450); RED BLOOD COUNT 3.55 10^6/uL (4.00-5.40); WHITE BLOOD COUNT 9.3 10^3/uL (4.0-10.0)
[2019-11-22] MEDS ORDERED: ISOVUE-370 76% 100ML VIAL As Ordered ONE (12:53)
[2019-11-22 13:11] LABS: ERYTHROCYTE SEDIMENTATION RATE 26 mm/hr (0-30)
--- NOTE | 2019-11-22 13:19 | REPVR ---
PROCEDURE INFORMATION: Exam: CT Neck With Contrast Exam date and time: 11/22/2019 12:04 PM Age: 69 years old Clinical indication: Mass, lump, or swelling in neck; Additional info: R parotid/neck swelling TECHNIQUE: Imaging protocol: Computed tomography images of the neck with intravenous contrast. Radiation optimization: All CT scans at this facility use at least one of these dose optimization techniques: automated exposure control; mA and/or kV adjustment per patient size (includes targeted exams where dose is matched to clinical indication); or iterative reconstruction. Contrast material: ISOVUE 370; Contrast volume: 75 ml; Contrast route: INTRAVENOUS (IV); COMPARISON: No relevant prior studies available. FINDINGS: Nasopharynx: Unremarkable. Oropharynx: Unremarkable. No significant tonsillar enlargement. Hypopharynx: Unremarkable. Larynx: Increased edema involves the right aryepiglottic fold, potentially extension of salivary gland process. Retropharyngeal space: Unremarkable. Submandibular/Parotid glands: There is diffuse enlargement and hyperemia of the right parotid gland. There is associated overlying soft tissue induration. Inflammatory changes extend into the right submandibular space. Thyroid: Normal. No enlarged or calcified nodules. Lymph nodes: Unremarkable. No lymphadenopathy. Trachea: Visualized trachea is unremarkable. Lungs: Unremarkable as visualized. Bones/joints: Unremarkable. No acute fracture. Soft tissues: There is expansion of the right masseter muscle. IMPRESSION: Findings compatible with right parotid sialoadenitis. Expansion of the right masseter muscle is likely reactive in nature. Changes extend into the right submandibular space. In addition, there is edema of the right aryepiglottic fold, reflecting deeper spread of inflammatory change. ENT evaluation is recommended. The Electronically signed by: Denise Smith On 11/22/2019 13:19:41 PM
[2019-11-22] MEDS ORDERED: AMPICILLIN SOD/SULBACTAM SOD 3 GM in D5W MINI-BAG PLUS 100 ML IV ONE (14:30)
[2019-11-22] MEDS ORDERED: dexameTHASONE 20MG/5ML VIAL (J1100 PER 1MG) IV ONE (14:30)
[2019-11-22] MEDS ORDERED: TRIA37.53 PO (14:34)
[2019-11-22] MEDS ORDERED: D3 U5000 PO (14:34)
[2019-11-22] MEDS ORDERED: TRAM37.53 PO (14:34)
[2019-11-22] MEDS: NS 1,000 ML IV SCH (16:41)
[2019-11-22] MEDS ORDERED: PILL CUTTER 1 EACH XX PRN (16:45)
--- NOTE | 2019-11-22 16:47 | HPEPDOC ---
[facility] Medical History & Physical Date of Admission Nov 22, 2019 Date of Service: Nov 22, 2019 Attending Physician: ABIODUN WAKEFIELD MD History and Physical CHIEF COMPLAINT: right neck pain and swelling HISTORY OF PRESENT ILLNESS: 69 y/o F with PMHx AF s/p ablation x 3, HTN, Depression, prior parotitis 20 years ago on left side who presents with pain and swelling on right parotid region. Pt notes pain, swelling, and redness started last night. Denies CP/SOB/palpitations. No N/V/abd pain. Has trouble opening her mouth given jaw swelling/pain. Pt difficulty breathing or swallowing. PAST MEDICAL HISTORY:As per HPI PAST SURGICAL HISTORY:ablation x 3, HYST, cholecystectomy, total knee arthropl asty SOCIAL HISTORY: Denies tobacco, alcohol, illicit drug use. FAMILY HISTORY: Non contributory ALLERGIES: Please see below. REVIEW OF SYSTEMS: HEENT: Denies sore throat/headache CARDIOVASCULAR: Denies chest pain/palpitations RESPIRATORY: Denies shortness of breath/cough GASTROINTESTINAL: denies nausea/vomiting GENITOURINARY: Denies dysuria/urinary urgency. MUSCULOSKELETAL: Denies myalgias/arthralgias NEUROLOGICAL: Denies any focal weakness HOME MEDICATIONS: Please see below. PHYSICAL EXAMINATION: Vitals: (see below) General: No acute distress, laying comfortably in bed. HEENT: Moist mucous membranes. Right jaw and parotid region pain and swelling. Cellulitis of right side of neck. Neck: No JVD or lymphadenopathy Cardiac: RRR, No murmurs Pulm: Clear to auscultation b/l. No wheezing, rhonchi Abd: NT/ND + BS Ext: No edema or cyanosis LABORATORY DATA: See below. IMAGING: CT Neck 11/22/19 IMPRESSION: Findings compatible with right parotid sialoadenitis. Expansion of the right masseter muscle is likely reactive in nature. Changes extend into the right submandibular space. In addition, there is edema of the right aryepiglottic fold, reflecting deeper spread of inflammatory change. ENT evaluation is recommended. ASSESSMENT/PLAN: 1. Sepsis 2/2 Right parotid sialoadenitis with associated cellulitis - Tm 100.6, leukocytosis. Started on Unasyn and decadron 6mg IV q6h as recc by Dr. Almaguer. Discussed with Dr. Almaguer who will see pt. NPO, IVF. 2. H/o AF s/p ablation. notes not on anticoagulation. On flecainide. 3. HTN controlled cont home meds, with the exception of diuretics. 4. HLD on statin DVT Prophy:SCDs Vital Signs Vital Signs Date Time Temp Pulse Resp B/P (MAP) Pulse Ox O2 Delivery O2 Flow Rate FiO2 11/22/19 14:13 97.5 72 17 140/64 (89) 99 Room Air Laboratory Data Labs 24H Laboratory Tests 2 11/22/19 12:04: Lactic Acid Level 0.9 11/22/19 12:09: Immature Granulocyte % (Auto) 0.3, Neutrophils (%) (Auto) 83.8H, Lymphocytes (%) (Auto) 9.9L, Monocytes (%) (Auto) 5.3H, Eosinophils (%) (Auto) 0.5, Basophils ( %) (Auto) 0.2, Neutrophils # (Auto) 7.8, Lymphocytes # (Auto) 0.9L, Monocytes # (Auto) 0.5, Eosinophils # (Auto) 0.1, Basophils # (Auto) 0.0, Nucleated Red Blood Cells % (auto) 0.0, Erythrocyte Sedimentation Rate 26, C-Reactive Protein, Quantitative 4.21H CBC/BMP Laboratory Tests 11/22/19 12:09 Microbiology Microbiology 11/22/19 Blood Culture, Received Pending Home Medications Scheduled Amoxicillin/Potassium Clav (Augmentin 875-125 Tablet) 1 Each Tablet, 875 MG PO BID Atorvastatin Calcium (Atorvastatin Calcium) 20 Mg Tablet, 20 MG PO QHS Cholecalciferol (Vitamin D3) (Vitamin D3) 125 Mcg Capsule, 5,000 UNITS PO DAILY Flecainide Acetate (Flecainide Acetate) 50 Mg Tablet, 50 MG PO BID Irbesartan (Irbesartan) 150 Mg Tablet, 75 MG PO QHS Pantoprazole Sodium (Protonix) 40 Mg Tab, 40 MG PO DAILY Triamterene/Hydrochlorothiazid (Triamterene-Hctz 37.5-25 mg Cp) 1 Each Capsule, 1 CAP PO DAILY Venlafaxine HCl (Venlafaxine HCl) 75 Mg Tab, 75 MG PO BID Scheduled PRN Tramadol HCl/Acetaminophen (Tramadol-Acetaminophn 37.5-325) 1 Each Tablet, 1 TAB PO Q6H PRN for PAIN Allergies Coded Allergies: morphine (Verified Allergy, Severe, tongue swells, 11/22/19) A-FIB/CHADSVASC A-FIB History Current/History of A-Fib/PAF?: Yes Current PO Anticoag Therapy: No ABIODUN WAKEFIELD MD Nov 22, 2019 16:47
[2019-11-22 20:45] VITALS: BP 164/82
[2019-11-22] MEDS: VENLAFAXINE 37.5 MG TAB PO SCH (21:00)
[2019-11-22] MEDS: IRBESARTAN 150MG TAB PO SCH (21:00)
[2019-11-22] MEDS: AMPICILLIN SOD/SULBACTAM SOD 3 GM in D5W MINI-BAG PLUS 100 ML IV SCH (22:02)
[2019-11-22] MEDS: FLECAINIDE 50MG TABLET PO SCH (22:03)
[2019-11-23] VITALS: BP 138/72
[2019-11-23] MEDS: AMPICILLIN SOD/SULBACTAM SOD 3 GM in D5W MINI-BAG PLUS 100 ML IV SCH ×4 (02:30→20:30)
[2019-11-23 04:00] VITALS: BP 146/67
[2019-11-23 05:40] LABS: HEMATOCRIT 34.9 % (36.0-47.0); HEMOGLOBIN 11.3 g/dl (12.0-15.5); MEAN CORPUSCULAR HGB CONC 32.4 g/dl (32.0-36.5); MEAN CORPUSCULAR VOLUME 95.9 fl (80.0-96.0); PLATELET COUNT, AUTOMATED 112 10^3/uL (150-450); RED BLOOD COUNT 3.64 10^6/uL (4.00-5.40); WHITE BLOOD COUNT 8.8 10^3/uL (4.0-10.0)
[2019-11-23] MEDS: NS 1,000 ML IV SCH (05:41)
[2019-11-23 06:14] LABS: ALBUMIN 3.3 GM/DL (3.2-5.2); ALT/SGPT 158 U/L (12-78); BILIRUBIN,TOTAL 0.6 MG/DL (0.2-1.0); BLOOD UREA NITROGEN 15 MG/DL (7-18); CALCIUM LEVEL 9.8 MG/DL (8.8-10.2); CARBON DIOXIDE LEVEL 26 MEQ/L (21-32); CHLORIDE LEVEL 106 MEQ/L (98-107); CREATININE FOR GFR 0.74 MG/DL (0.55-1.30); GLOMERULAR FILTRATION RATE > 60.0 (>45); GLUCOSE, FASTING 168 MG/DL (70-100); POTASSIUM SERUM 3.8 MEQ/L (3.5-5.1); SODIUM LEVEL 138 MEQ/L (136-145)
[2019-11-23 08:00] VITALS: BP 134/63
[2019-11-23] MEDS: VENLAFAXINE 37.5 MG TAB PO SCH ×2 (09:05→20:30)
[2019-11-23] MEDS: PANTOPRAZOLE 40MG TAB (PROTONIX) PO SCH (09:05)
[2019-11-23] MEDS: FLECAINIDE 50MG TABLET PO SCH ×2 (09:11→20:30)
[2019-11-23 12:00] VITALS: BP 143/73
[2019-11-23 16:00] VITALS: BP 140/80
--- NOTE | 2019-11-23 19:41 | IPNPDOC ---
Subjective Date Seen The patient was seen on 11/23/19. Subjective Chief Complaint/HPI Mrs. Page is a 69 year old female with history of left sided parotitis 20 years ago here with right sided parotidis. This morning, she still has persistent swelling and pain unchanged from prior. Otherwise denies fever/chills, chest pain, abdominal pain, dyspnea, or dysuria. Constitutional: Denies: Chills, Fever Pulmonary: Denies: Dyspnea Cardiovascular: Denies: Chest Pain Gastrointestinal: Denies: Abdominal Pain Genitourinary: Denies: Dysuria Objective Physical Examination General Exam: Positive: Alert, Cooperative, Mild Distress Eye Exam: Positive: EOMI; Negative: Sclera icteric ENT Exam: Positive: Other ENT (Right sided swelling and tenderness) Neck Exam: Positive: Supple Chest Exam: Positive: Clear to auscultation Heart Exam: Positive: Rate Normal, Regular Rhythm Abdomen Exam: Positive: Normal bowel sounds, Soft; Negative: Tenderness Extremity Exam: Positive: Edema Neuro Exam: Positive: Cranial Nerves 3-12 NL Psych Exam: Positive: Mental status NL, Mood NL Assessment /Plan Assessment Mrs. Page is a 69 year old female with history of left sided parotitis 20 years ago here with right sided parotidis. ENT following, recommendations appreciated. Recommending IV steroids and IV Unasyn. Plan/VTE VTE Prophylaxis Ordered?: Yes Plan 1. Sepsis 2/2 right parotid sialoadenitis with associated cellulitis -Fever and tachypnea with source -ENT following, recommendations appreciated -Continue Unasyn and IV steroids 2. AFib s/p ablation -On Flecainide -Not on AC 3. Hypertension -Continue irbesartan -Holding Triamterene/HCTZ due to sepsis 4. Depression/Anxiety -Continue Venlafaxine 5. GERD -Protonix 6. DVT ppx -SCD and TEDs VS, I&O, 24H, Fishbone Vital Signs/I&O Vital Signs Date Time Temp Pulse Resp B/P (MAP) Pulse Ox O2 Delivery O2 Flow Rate FiO2 11/23/19 16:00 97.4 95 20 140/80 (100) 77 Room Air I&O- Last 24 Hours up to 6 AM 11/23/19 06:00 Intake Total 840 ml Output Total 0 ml Balance 840 ml Laboratory Data 24H LABS Laboratory Tests 2 11/23/19 05:07: Nucleated Red Blood Cells % (auto) 0.0, Anion Gap 6L, Glomerular Filtration Rate > 60.0, Calcium Level 9.8, Total Bilirubin 0.6, Aspartate Amino Transf ( AST/SGOT) 145H, Alanine Aminotransferase (ALT/SGPT) 158H, Alkaline Phosphatase 119H, Total Protein 7.0, Albumin 3.3, Albumin/Globulin Ratio 0.9L CBC/BMP Laboratory Tests 11/23/19 05:07 Microbiology Microbiology 11/22/19 Blood Culture - Preliminary, Resulted No growth after 24 hours . All specim... 11/22/19 Blood Culture - Preliminary, Resulted No growth after 24 hours . All specim... MARIE PEDERSON DO Nov 23, 2019 19:41
[2019-11-23 20:00] VITALS: BP 146/67
[2019-11-23] MEDS: IRBESARTAN 150MG TAB PO SCH (20:30)
[2019-11-24] VITALS: BP 141/76
[2019-11-24] MEDS: AMPICILLIN SOD/SULBACTAM SOD 3 GM in D5W MINI-BAG PLUS 100 ML IV SCH ×3 (02:30→13:46)
[2019-11-24 04:00] VITALS: BP 134/63
[2019-11-24 05:36] LABS: HEMATOCRIT 33.6 % (36.0-47.0); HEMOGLOBIN 11.4 g/dl (12.0-15.5); MEAN CORPUSCULAR HEMOGLOBIN 32.4 pg (27.0-33.0); MEAN CORPUSCULAR HGB CONC 33.9 g/dl (32.0-36.5); MEAN CORPUSCULAR VOLUME 95.5 fl (80.0-96.0); PLATELET COUNT, AUTOMATED 147 10^3/uL (150-450); RED BLOOD COUNT 3.52 10^6/uL (4.00-5.40); WHITE BLOOD COUNT 10.1 10^3/uL (4.0-10.0)
[2019-11-24 05:57] LABS: BLOOD UREA NITROGEN 18 MG/DL (7-18); CALCIUM LEVEL 9.4 MG/DL (8.8-10.2); CARBON DIOXIDE LEVEL 25 MEQ/L (21-32); CHLORIDE LEVEL 108 MEQ/L (98-107); CREATININE FOR GFR 0.89 MG/DL (0.55-1.30); GLOMERULAR FILTRATION RATE > 60.0 (>45); GLUCOSE, FASTING 146 MG/DL (70-100); POTASSIUM SERUM 3.9 MEQ/L (3.5-5.1); SODIUM LEVEL 140 MEQ/L (136-145)
[2019-11-24 08:00] VITALS: BP_SYST 146; BP_SYST 191; BP_DIAS 74; BP_DIAS 81
[2019-11-24] MEDS: FLECAINIDE 50MG TABLET PO SCH (09:07)
[2019-11-24] MEDS: PANTOPRAZOLE 40MG TAB (PROTONIX) PO SCH (09:07)
[2019-11-24] MEDS: VENLAFAXINE 37.5 MG TAB PO SCH (09:07)
[2019-11-24] MEDS ORDERED: AUGM875T28 PO (11:01)
[2019-11-24 12:00] VITALS: BP 152/82
--- NOTE | 2019-11-24 21:48 | DS.PDOC ---
Discharge Summary General Date of Admission Nov 22, 2019 at 16:16 Date of Discharge Nov 24, 2019 Attending Physician: MARIE PEDERSON DO Specialist/Consultants Involve ENTDr. Almaguer Discharge Summary PROCEDURES PERFORMED DURING STAY: None ADMITTING DIAGNOSES: 1. Sepsis secondary to right parotid sialoadenitis 2. A. fib status post ablation 3. Hypertension 4. Hyperlipidemia. DISCHARGE DIAGNOSES: 1. Sepsis secondary to right parotid sialoadenitis 2. A. fib status post ablation 3. Hypertension 4. Hyperlipidemia. 5. Depression/anxiety 6. GERD COMPLICATIONS/CHIEF COMPLAINT: Parotiditis,Sialadenitis. HISTORY OF PRESENT ILLNESS: Patient is a 69-year-old female with atrial fibrillation status post ablation 3, hypertension, depression, prior history of parotitis on the left side 20 years ago who comes to the ED for right-sided swelling of the parotid reason. Patient notes to have pain, swelling, and redness which started the night prior to admission. Patient reports difficulty breathing and swallowing. The patient was noted to have a fever 100.6 and tac hypnea of 20. Diuretics are held patient was given fluids and antibiotics. HOSPITAL COURSE: During the hospitalization, patient was given Unasyn and IV Decadron. After 2 days she's noticed an improvement in the pain and swelling. She has been afebrile for more than 48 hours. It is less tender and she is able to tolerate a diet. Today she denied any fever or chills, lightheadedness or dizziness, chest pain, dyspnea, abdominal pain, diarrhea, or dysuria. Blood cultures had no growth after 48 hours. She is anxious to go home. I reached out to ENT, Dr. Almaguer. He recommended one week of oral antibiotics and follow-up in his office. Patient was agreeable to this and was subsequently discharged home. DISCHARGE MEDICATIONS: Please see below. ALLERGIES: Please see below. PHYSICAL EXAMINATION ON DISCHARGE: VITAL SIGNS: Please see below. GENERAL: Comfortable, in no apparent distress. HEENT: Head normocephalic/atraumatic, EOMI, sclera clear. NECK: Supple, right swelling and tenderness in the parotid region but much improved from prior RESPIRATORY: Lungs clear to auscultation bilaterally, no rales, wheeze or rhonchi. CARDIOVASCULAR: Regular rate and rhythm. ABDOMEN: Soft, nontender, no guarding or rebound tenderness. Normal bowel sounds. MUSCLE SKELETAL: Muscle strength 5/5 in all extremities. NEUROLOGICAL: CN 312 grossly intact, no focal deficits noted. PSYCHOLOGICAL: Normal mood and affect LABORATORY DATA: Please see below. IMAGING: CT neck with contrast Findings compatible with right parotid sialoadenitis. Expansion of the right masseter muscle is likely reactive in nature. Changes extend into the right submandibular space. In addition, there is edema of the right aryepiglottic fold, reflecting deeper spread of inflammatory change. ENT evaluation is recommended. PROGNOSIS: Stable ACTIVITY: As tolerated DIET: As tolerated DISCHARGE PLAN: Home DISPOSITION: 01 Home, Self-Care. DISCHARGE INSTRUCTIONS: 1. Follow-up with your PCP within a week 2. Follow-up with ENT within a week 3. Continue antibiotics for one week DISCHARGE CONDITION: Stable Total time spent on discharge planning, discharge summary, and med reconciliat ion 45 minutes Vital Signs/I&Os Vital Signs Date Time Temp Pulse Resp B/P (MAP) Pulse Ox O2 Delivery O2 Flow Rate FiO2 11/24/19 12:00 98.2 65 20 152/82 (105) 92 Room Air I&O- Last 24 Hours up to 6 AM 11/24/19 06:00 Intake Total 120 ml Output Total 600 ml Balance -480 ml Laboratory Data Labs 24H Laboratory Tests 2 11/24/19 05:18: Nucleated Red Blood Cells % (auto) 0.0, Anion Gap 7L, Glomerular Filtration Rate > 60.0, Calcium Level 9.4 CBC/BMP Laboratory Tests 11/24/19 05:18 Microbiology Microbiology 11/22/19 Blood Culture - Preliminary, Resulted No Growth after 48 hours. All Specime... 11/22/19 Blood Culture - Preliminary, Resulted No Growth after 48 hours. All Specime... Discharge Medications Scheduled Amoxicillin/Potassium Clav (Augmentin 875-125 Tablet) 1 Each Tablet, 875 MG PO BID Atorvastatin Calcium (Atorvastatin Calcium) 20 Mg Tablet, 20 MG PO QHS, (Reported) Cholecalciferol (Vitamin D3) (Vitamin D3) 125 Mcg Capsule, 5,000 UNITS PO DAILY, (Reported) Flecainide Acetate (Flecainide Acetate) 50 Mg Tablet, 50 MG PO BID, (Reported) Irbesartan (Irbesartan) 150 Mg Tablet, 75 MG PO QHS, (Reported) Pantoprazole Sodium (Protonix) 40 Mg Tab, 40 MG PO DAILY, (Reported) Triamterene/Hydrochlorothiazid (Triamterene-Hctz 37.5-25 mg Cp) 1 Each Capsule, 1 CAP PO DAILY, (Reported) Venlafaxine HCl (Venlafaxine HCl) 75 Mg Tab, 75 MG PO BID, (Reported) Scheduled PRN Tramadol HCl/Acetaminophen (Tramadol-Acetaminophn 37.5-325) 1 Each Tablet, 1 TAB PO Q6H PRN for PAIN, (Reported) Allergies Coded Allergies: morphine (Verified Allergy, Severe, tongue swells, 11/22/19) MARIE PEDERSON DO Nov 24, 2019 21:48
== END 2019-11-24 15:15 | disposition home or self-care (01) | DRG 872 ==
LOC: M ED 11:22 → M ED INP 16:16 → M PCU 20:45
PROVIDERS: ADMIT Internal Medicine; ATTEND Internal Medicine
DX: A41.9 Sepsis, unspecified organism (principal); L03.211 Cellulitis of face; K11.20 Sialoadenitis, unspecified; I10 Essential (primary) hypertension; E78.5 Hyperlipidemia, unspecified; I48.91 Unspecified atrial fibrillation; F32.9 Major depressive disorder, single episode, unspecified; F41.9 Anxiety disorder, unspecified; K21.9 Gastro-esophageal reflux disease without esophagitis; Z79.899 Other long term (current) drug therapy; Z88.5 Allergy status to narcotic agent

== ENCOUNTER → 2020-02-16 | Outpatient (CLI) | payer MEDICARE ==
[~2020-02-16] MED LIST changes: +ATOR1TAB21 PO; +AUGM875T28 PO; +D3 U5000 PO; +FLEC25TA PO; +IRBE150T7 PO; +OMEP40CA97 PO; +TRIA37.53 PO
== END ==
LOC: M LABSMTC 12:20
PROVIDERS: ATTEND Anesthesiology
DX: Z01.812 Encounter for preprocedural laboratory examination (principal); Z20.828 Contact with and (suspected) exposure to other viral communicable diseases

== ENCOUNTER 2020-02-21 09:24 | Day surgery (SDC) | payer MEDICARE ==
[~2020-02-21] VITALS: Ht 170.2 cm; Wt 88.5 kg
[~2020-02-21 09:24] MED LIST changes: +LR 1,000 ML IV ONE
[2020-02-21] MEDS ORDERED: propofoL 200 MG/20 ML VIAL As Ordered ONE (09:54)
[2020-02-21] MEDS ORDERED: MIDAZOLAM INJ 2MG/2ML VIAL (J2250 PER 1MG) As Ordered ONE (09:54)
[2020-02-21] MEDS ORDERED: ROCURONIUM BROMIDE 50 MG/5 ML VIAL As Ordered ONE (09:54)
[2020-02-21] MEDS ORDERED: dexameTHASONE 4 MG/ML 1ML VIAL (J1100 PER 1MG) As Ordered ONE (09:54)
[2020-02-21] MEDS ORDERED: ONDANSETRON 4MG/2ML VIAL As Ordered ONE (09:54)
[2020-02-21] MEDS ORDERED: fentaNYL 250 MCG/5 ML INJECTION (J3010) As Ordered ONE (09:54)
[2020-02-21] MEDS ORDERED: LIDOCAINE 2% 100MG/5ML SDV (FOR ANES.) As Ordered ONE (09:54)
[2020-02-21] MEDS ORDERED: TRIAMCINOLONE ACETONIDE SUSP 40 MG/ML VIAL (J3301) As Ordered ONE (11:43)
[2020-02-21] MEDS ORDERED: KETOROLAC 60MG 2ML VIAL As Ordered ONE (12:27)
[2020-02-21] MEDS ORDERED: SUGAMMADEX SODIUM 500 MG/5 ML VIAL (BRIDION) As Ordered ONE (12:28)
[2020-02-21] MEDS ORDERED: ONDANSETRON 4MG/2ML VIAL IV PRN (13:00)
[2020-02-21] MEDS ORDERED: oxyCODONE 5MG TAB PO PRN (13:00)
[2020-02-21] MEDS ORDERED: LR 1,000 ML IV SCH ×2 (13:00)
[2020-02-21] MEDS ORDERED: ACETAMINOPH W/CODEINE #3 TAB UD PO PRN (13:00)
[2020-02-21] MEDS ORDERED: fentaNYL 100 MCG/2 ML INJECTION (J3010) IV PRN (13:00)
[2020-02-21 14:05] VITALS: BP 118/60
--- NOTE | 2020-02-21 17:42 | RO ---
OPERATIVE NOTE DATE OF OPERATION: 02/21/2020 PREOPERATIVE DIAGNOSIS: Chronic right parotid sella. POSTOPERATIVE DIAGNOSIS: Chronic right parotid sella. PROCEDURE: Right parotid sialendoscopy. DESCRIPTION OF PROCEDURE: Under general anesthesia with the patient intubated, the patient was draped in the usual manner. I entered the right parotid duct and dilated at the entrance. I inserted the scope. I was only able to advance the scope 2 cm and it was completely blocked. I did try dilating it up and probing it and I think it was just a false passage. I did pass the scope afterward and it again looked more like soft tissue than actually the duct. The patient tolerated the procedure well. I elected to do nothing further. The patient was extubated and transferred to the recovery room in excellent condition.
== END 2020-02-21 14:40 | disposition home or self-care (01) ==
LOC: M SDC 09:24
PROVIDERS: ATTEND Otolaryngology
DX: K11.20 Sialoadenitis, unspecified (principal); I10 Essential (primary) hypertension; I48.91 Unspecified atrial fibrillation; E78.5 Hyperlipidemia, unspecified; G47.30 Sleep apnea, unspecified; Z79.899 Other long term (current) drug therapy; Z88.5 Allergy status to narcotic agent
CPT/HCPCS: 42699; J1100; J1885; J2250; J2405; J3010; J3301

== ENCOUNTER → 2020-06-28 | Outpatient (REF) | payer MEDICARE ==
[~2020-06-28] MED LIST changes: -LR 1,000 ML IV ONE
[2020-06-28 19:48] LABS: APPEARANCE, URINE HAZY (CLEAR); BACTERIA, URINE AUTO 1+ (NEGATIVE); BILIRUBIN, URINE AUTO NEGATIVE (NEGATIVE); BLOOD, URINE BLOOD NEGATIVE (NEGATIVE); COLOR, URINE YELLOW (YELLOW); GLUCOSE, URINE (UA) AUTO NEGATIVE (NEGATIVE); KETONE, URINE AUTO NEGATIVE (NEGATIVE); LEUKOCYTE ESTERASE, URINE AUTO NEGATIVE (NEGATIVE); NITRITE, URINE AUTO NEGATIVE (NEGATIVE); PROTEIN, URINE AUTO 1+ mg/dL (NEGATIVE); RBC, URINE AUTO 0 /HPF (0-3); SPECIFIC GRAVITY URINE AUTO 1.014 (1.002-1.035); SQUAMOUS EPITHELIAL CELL UR AU 1 /HPF (0-6); UROBILINOGEN, URINE AUTO 0.2 mg/dL (0.0-2.0); WBC, URINE AUTO 1 /HPF (0-3)
== END ==
LOC: M LAB REF 18:51
PROVIDERS: ATTEND Physician Assistant
DX: N39.0 Urinary tract infection, site not specified (principal)

== ENCOUNTER → 2020-09-29 | Outpatient (REF) | payer MEDICARE ==
[~2020-09-29] MED LIST changes: +OMEP40CA4 PO; -OMEP40CA97 PO
== END ==
LOC: M LAB REF 15:00
PROVIDERS: ATTEND Physician Assistant
DX: N39.0 Urinary tract infection, site not specified (principal)

== ENCOUNTER → 2020-11-14 | Outpatient (REF) | payer MEDICARE | LOC: M LAB REF 16:46 | PROVIDERS: ATTEND Physician Assistant | DX: N39.0 Urinary tract infection, site not specified (principal) ==

== ENCOUNTER → 2021-05-29 | Outpatient (REF) | payer MEDICARE | LOC: EEVIPCON 17:07 → M LAB REF 17:07 | PROVIDERS: ATTEND Physician Assistant | DX: N39.0 Urinary tract infection, site not specified (principal) ==

== ENCOUNTER → 2021-07-24 | Outpatient (REF) | payer MEDICARE ==
[~2021-07-24] MED LIST changes: -TRIA37.53 PO; +TRIA37.577 PO
== END ==
LOC: M LAB REF 16:50
PROVIDERS: ATTEND Physician Assistant
DX: N39.0 Urinary tract infection, site not specified (principal)

== ENCOUNTER 2022-09-25 18:51 | Emergency (ER) | payer MEDICARE ==
[~2022-09-25] VITALS: Ht 170.2 cm; Wt 95.5 kg
[2022-09-25] MEDS ORDERED: VALS1TAB66 (19:06)
[2022-09-25] MEDS ORDERED: SERTRALINE (19:06)
[2022-09-25] MEDS ORDERED: ACETAMINOPHEN TAB 650MG DOSE (2X325MG) PO ONE (19:35)
[2022-09-25] MEDS ORDERED: oxyCODONE 5MG TAB PO ONE (19:35)
[2022-09-25] MEDS ORDERED: OXYC-517 PO (20:56)
[2022-09-25 21:21] VITALS: BP 145/93; TEMP 98.6; O2SAT 97
[2022-09-25] MEDS ORDERED: OXYCODONE/APAP 5MG/325MG(HOME DOSE PACK) PO ONE (21:45)
== END 2022-09-25 21:47 | disposition home or self-care (01) ==
LOC: M ED 18:51
DX: S52.572A Other intraarticular fracture of lower end of left radius, initial encounter for closed fracture (principal); S52.612A Displaced fracture of left ulna styloid process, initial encounter for closed fracture; W18.2XXA Fall in (into) shower or empty bathtub, initial encounter; Y92.009 Unspecified place in unspecified non-institutional (private) residence as the place of occurrence of the external cause; Y93.E1 Activity, personal bathing and showering; I10 Essential (primary) hypertension; E78.5 Hyperlipidemia, unspecified; K21.9 Gastro-esophageal reflux disease without esophagitis; F32.A Depression, unspecified; Z88.5 Allergy status to narcotic agent; Z79.899 Other long term (current) drug therapy

== ENCOUNTER → 2022-09-27 | Outpatient (CLI) | payer MEDICARE ==
[~2022-09-27] MED LIST changes: +OXYC-517 PO; +SERTRALINE; +VALS1TAB66
[2022-09-27 13:16] LABS: BASO % 0.5 % (0.0-1.0); EOS # 0.1 10^3/uL (0.0-0.5); EOS % 1.4 % (0.0-3.0); HEMATOCRIT 37.6 % (36.0-47.0); HEMOGLOBIN 11.9 g/dl (12.0-15.5); LYMPH # 1.6 10^3/uL (1.5-5.0); LYMPH % 24.2 % (24.0-44.0); MEAN CORPUSCULAR HEMOGLOBIN 29.8 pg (27.0-33.0); MEAN CORPUSCULAR HGB CONC 31.6 g/dl (32.0-36.5); MEAN CORPUSCULAR VOLUME 94.2 fl (80.0-96.0); MONO # 0.6 10^3/uL (0.0-0.8); MONO % 9.1 % (2.0-8.0); NEUTROPHILS # 4.2 10^3/uL (1.5-8.5); NEUTROPHILS % 64.5 % (36.0-66.0); PLATELET COUNT, AUTOMATED 162 10^3/uL (150-450); RED BLOOD COUNT 3.99 10^6/uL (4.00-5.40); WHITE BLOOD COUNT 6.5 10^3/uL (4.0-10.0)
[2022-09-27 14:02] LABS: ALKALINE PHOSPHATASE 80 U/L (46-116); ALT/SGPT 20 U/L (7.0-40); AST/SGOT 23 U/L (<34); BILIRUBIN,TOTAL 0.7 MG/DL (0.3-1.2); BLOOD UREA NITROGEN 13 MG/DL (9-23); CALCIUM LEVEL 9.6 MG/DL (8.3-10.6); CARBON DIOXIDE LEVEL 27 MMOL/L (20-31); CHLORIDE LEVEL 106 MMOL/L (98-107); CREATININE FOR GFR 0.82 MG/DL (0.55-1.30); GLOMERULAR FILTRATION RATE > 60.0 (>39); GLUCOSE, FASTING 100 MG/DL (74-106); POTASSIUM SERUM 3.6 MMOL/L (3.5-5.1); SODIUM LEVEL 142 MMOL/L (136-145); TOTAL PROTEIN 7.2 G/DL (5.7-8.2)
== END ==
LOC: M RAD 11:56
PROVIDERS: ATTEND Orthopaedic Surgery
DX: Z01.818 Encounter for other preprocedural examination (principal)

== ENCOUNTER → 2024-06-14 | Outpatient (REF) | payer MEDICARE, OTHER ==
[~2024-06-14] MED LIST changes: +IRBE150T27 PO; -IRBE150T7 PO; +TRAM1TAB42 PO; -TRAM37.53 PO
== END ==
LOC: M SFHCDERM 13:13
PROVIDERS: ATTEND Podiatrist Foot & Ankle Surgery
DX: C44.702 Unspecified malignant neoplasm of skin of right lower limb, including hip (principal)

== ENCOUNTER → 2024-07-08 | Outpatient (CLI) | payer MEDICARE, OTHER ==
[~2024-07-08] MED LIST changes: +LIDO30CR18 TOP
== END ==
LOC: M ONCR 10:25
PROVIDERS: ATTEND General Practice
DX: C44.729 Squamous cell carcinoma of skin of left lower limb, including hip (principal); Z79.899 Other long term (current) drug therapy; Z88.5 Allergy status to narcotic agent; Z90.49 Acquired absence of other specified parts of digestive tract; Z90.710 Acquired absence of both cervix and uterus

== ENCOUNTER → 2024-09-03 | Outpatient (CLI) | payer MEDICARE, OTHER | LOC: M ONCR 09:28 | PROVIDERS: ATTEND General Practice | DX: C44.729 Squamous cell carcinoma of skin of left lower limb, including hip (principal); Z92.21 Personal history of antineoplastic chemotherapy; Z88.5 Allergy status to narcotic agent; Z79.899 Other long term (current) drug therapy ==

== ENCOUNTER → 2024-10-06 | Outpatient (CLI) | payer MEDICARE, OTHER | LOC: M ONCR 09:57 | PROVIDERS: ATTEND General Practice | DX: C44.729 Squamous cell carcinoma of skin of left lower limb, including hip (principal) ==

== ENCOUNTER → 2024-11-17 | Outpatient (CLI) | payer MEDICARE, OTHER ==
[~2024-11-17] MED LIST changes: +AMOX875T2 PO; +BACT800T5 PO; +PRED50TA57 PO
== END ==
LOC: M ONCR 09:59
PROVIDERS: ATTEND General Practice
DX: L03.115 Cellulitis of right lower limb (principal)

== ENCOUNTER → 2024-11-24 | Outpatient (CLI) | payer MEDICARE, OTHER | LOC: M ONCR 10:35 | PROVIDERS: ATTEND General Practice | DX: L03.116 Cellulitis of left lower limb (principal); L97.429 Non-pressure chronic ulcer of left heel and midfoot with unspecified severity ==